=== PATIENT | female | born 1955 | race Caucasian/White ===

== ENCOUNTER → 2021-06-17 13:53 | Outpatient (CLI) | payer MEDICARE, OTHER, SELFPAY ==
--- NOTE | 2021-06-17 14:03 | CT_ITS ---
STUDY: CT ABDOMEN AND PELVIS WITH CONTRAST REASON FOR EXAM: Female, 65 years old. Left upper quadrant and epigastric pain. Chronic constipation. RADIATION DOSAGE (If Supplied By Facility): CTDIvol = ( 17.37 ) mGy, DLP = ( 538.24 ) mGycm TECHNIQUE: Transaxial images were obtained from the dome of the diaphragm to the symphysis pubis with oral contrast. Oral and amp; IV Readi-CAT and amp; 100mL Isovue-370 was administered. Sagittal and coronal images were reconstructed. Individualized dose optimization techniques were used for this CT. COMPARISON: None. FINDINGS: Minimal linear scarring in the anterior medial aspect of the right lower lobe. The visualized portions of the heart are within normal limits. Normal liver. There are surgical clips in the gallbladder fossa consistent with a prior cholecystectomy. Normal spleen. Normal pancreas. Normal bilateral adrenal glands. There is a 1.2 cm cyst in the inferior medial portion of the right kidney. Normal left kidney. Normal visualized stomach. Normal small intestine. Normal colon. The appendix is visualized and appears normal. There is scattered atherosclerotic calcification of the abdominal aorta, without a demonstrated aneurysm. Normal inferior vena cava. There is borderline retroperitoneal lymphadenopathy with enlarged nodes no greater than 10mm in the short axis diameter. Normal urinary bladder. The patient is status post hysterectomy. There is evidence of a cystocele. Normal abdominal wall. Normal osseous structures. CT/Abdomen/Pelvis W IV Cont ONLY IMPRESSION: Status post cholecystectomy. 1.2 cm cyst in the inferior medial portion of the right kidney. Electronically Signed: Mayito High MD at 14:57 EDT , Service support ,
[2021-06-17 14:41] LABS: CREATININE FINGERSTICK 1.1 mg/dL (0.55-1.02)
== END ==
PROVIDERS: PCP Internal Medicine; Referring Provider Internal Medicine Gastroenterology; Visit Provider Internal Medicine Gastroenterology
DX: R10.9 Unspecified abdominal pain (principal)
CPT/HCPCS: 74177; Q9967; A4216